=== PATIENT | female | born 1950 | race Caucasian/White ===

== ENCOUNTER 2021-11-17 20:12 | Emergency (ER) | payer OTHER ==
[2021-11-17 21:00] LABS: EOSINOPHIL 4.2 % (0-7); HCT 36.1 % (37.0-47.0); HGB 12.1 g/dl (12.5-16.0); LYMPHOCYTE 37.4 % (15-48); MCH 31.2 pg (25.0-31.0); MCHC 33.5 g/dL (32.0-36.0); MONOCYTE 9.7 % (0-12); MPV 11.4 fL (6.0-9.5); NEUTROPHIL 47.5 % (41-80); NRBC 0; PLT 160 K/uL (150-400); RBC 3.88 M/uL (4.20-5.40); RDW 12.5 % (11.5-14.0); WBC 8.2 K/uL (4.0-10.5)
[2021-11-17 21:27] LABS: BUN/CREAT RATIO (CALC) 19.4 RATIO; CREATININE 1.39 mg/dL (0.51-0.95); POTASSIUM 3.6 mmol/L (3.5-5.1)
[2021-11-17 21:36] LABS: CORONAVIRUS 2019 SARS-COV-2 NEGATIVE (NEGATIVE); INFLUENZA A NAA NEGATIVE (NEGATIVE)
[2021-11-17] MEDS ORDERED: PREDNISONE 20MG20 MG PO (23:16)
[2021-11-17] MEDS ORDERED: VENTOLIN HFA IN18 GM INH (23:16)
[2021-11-17] MEDS ORDERED: AZITHROMYCIN250 MG PO (23:16)
[2021-11-17] MEDS ORDERED: SYMBICORT 16010.2 GM INH (23:16)
== END 2021-11-17 23:00 | disposition home or self-care (01) ==
LOC: FER 20:12
PROVIDERS: Internal Medicine
DX: J96.11 Chronic respiratory failure with hypoxia (principal); R07.81 Pleurodynia; I10 Essential (primary) hypertension; Z88.6 Allergy status to analgesic agent; Z79.899 Other long term (current) drug therapy; Z20.822 Contact with and (suspected) exposure to COVID-19
CPT/HCPCS: 36415; 71045; 80048; 84145; 84484; 85025; 93005; 94640; J1100; U0002